=== PATIENT | male | born 1995 | race Caucasian/White ===

== ENCOUNTER 2019-04-12 17:59 | Inpatient (IN) | payer BC ==
[~2019-04-12] VITALS: Ht 167.6 cm; Wt 70.4 kg
[2019-04-12 18:16] VITALS: Ht 167.6 cm; Wt 70.4 kg
--- NOTE | 2019-04-12 19:50 | NUR ---
PT PRESENTED TO ED FOR INTERMITTENT DIZZINESS, "LIGHT-HEADEDNESS", NAUSEA, "MY BLOOD PRESSURE IS HIGH", AND "WHEN I WALK I FEEL UNBALANCED" X 1 DAY. PT DENIES ANY CP, SOB, SYNCOPE, ABDOMINAL PAIN, VOMITING, DAIRRHEA, OR FEVERS. PER PT FAMILY "WE TOOK HIM TO URGENT CARE AND THEY SAID THEY WANTED TO TRANSFER HIM TO HERE BY AMBULANCE BUT HE DIDNT WANT TO SO WE CAME HERE". PT DENIES CURRENT DIZZINESS BUT STATES "IM STILL LIGHTHEADED AND NAUSEOUS". PT AMBULATES WITH STEADY GAIT, PUPILS ARE EQUAL, ROUND, AND REACTIVE TO LIGHT. NO NEURO DEFICITS NOTED. BREATHING EVEN AND UNLABORED. PT SPEAKING FULL CLEAR SENTENCES. FAMILY AT BEDSIDE. WILL CONTINUE TO MONITOR.
--- NOTE | 2019-04-12 20:52 | NUR ---
PT SITTING UP IN GURNEY, AWAKE, SPEAKING IN FULL CLEAR SENTENCES, AAOX4, RESP E/U, AMBULATORY WITH STEADY GAIT UPON ARRIVAL TO ROOM. MOVING ALL EXTREMITIES APPROPRIATELY. NAD NOTED.
[2019-04-12 20:55] LABS: BASOPHIL % 0.6 % (0-2); PLATELET COUNT 302 x10^3mcL (130-400); RED CELL DISTRIBUTION WIDTH 14.3 % (11.5-14.5)
[2019-04-12 20:56] LABS: CALCIUM 9.2 mg/dL (8.5-10.1); CARBON DIOXIDE 31.4 mmol/L (21-32); CHLORIDE SERUM 101 mmol/L (98-107); CREATININE SERUM 0.9 mg/dL (0.7-1.3); GFR1 > 60 mL/min; GLUCOSE SERUM 104 mg/dL (74-106); POTASSIUM SERUM 4.4 mmol/L (3.5-5.1); SODIUM SERUM 139 mmol/L (136-145)
[2019-04-12 21:01] LABS: ALBUMIN 4.4 g/dL (3.4-5.0); ALKALINE PHOSPHATASE 65 U/L (46-116); ALT/SGPT 40 U/L (16-63); AST/SGOT 18 U/L (15-37); BILIRUBIN TOTAL 0.27 mg/dL (0.20-1.00); CHOLESTEROL 145 mg/dL (<200)
[2019-04-12 21:02] LABS: HDL CHOLESTEROL 34 mg/dL (40-60); TOTAL PROTEIN, SERUM 8.5 g/dL (6.4-8.2)
--- NOTE | 2019-04-12 21:22 | NUR ---
TELE NEURO MONITOR PLACED AT BEDSIDE.
--- NOTE | 2019-04-12 21:49 | NUR ---
PT MEDICATED PER MD ORDER. PT VERBALIZED, IN FULL CLEAR SENTENCES, UNDERSTANDING OF THE MEDICATION PRIOR TO ADMINISTRATION.
[2019-04-12 22:12] LABS: AMPHETAMINE QUAL UR NONE DETECTED (See below)
--- NOTE | 2019-04-12 22:14 | NUR ---
PT REQUESTING TO EAT TACOS BROUGHT TO HIM. PER DR. MARTINES, OKAY FOR PT TO EAT TACOS.
[2019-04-12 22:20] LABS: microscopic required? NO
--- NOTE | 2019-04-12 22:26 | NUR ---
PT IS AWAKE, SPEAKING IN FULL CLEAR SENTENCES, SMILING, MOVING ALL EXTREMITIES APPROPRIATELY, ANSWERING QUESTIONS APPROPRIATELY, AAOX4, RESP E/U, NAD NOTED. RESIDENTS AT BEDSIDE.
[2019-04-12 22:28] LABS: urine erythrocyte NEGATIVE (NEGATIVE)
--- NOTE | 2019-04-12 22:33 | NUR ---
REPORT CALLED TO MELODY ERAZO TO ASSUME CARE OF PT.
--- NOTE | 2019-04-12 22:48 | NUR ---
RECEIVED PT FROM ED VIA [facility], CAME IN DUE TO DIZZINESS (ROOM WAS SPINNING) THAT STARTED THIS AM. AAOX4. C/O MILD LIGHTHEADEDNESS. ABLE TO FOLLOW COMMANDS. SPEECH IS CLEAR. NO FACIAL DROOP/ARM DRIFT. NO SOB NOTED, LUNG SOUNDS CTA, O2 SAT=97%, RA. DENIES CHEST PAIN/PRESSURE, SR ON THE MONITOR. DENIES ABDOMINAL DISCOMFORT. LAST BM=04/11/19. VOIDS. IV SITE PATENT AND INTACT. SIDE RAILS UPX2. CALL LIGHT ON REACH. AT BEDSIDE. PRIMARY NURSE [place] AT BEDSIDE FOR CONTINUITY OF CARE
[2019-04-12 22:59] VITALS: BP 127/79
--- NOTE | 2019-04-13 00:55 | NUR ---
Pt. curerntly resting in bed at this time, with family at bedside. Pt. currently asleep but easily arousable with verbal stimuli. Pt. has been started on IV fluids as ordered, IV site patent on the L AC. Pt. has no questions or concerns at this time. Pt. has no c/o of pain, dizziness, SOB, chest pain, or s/o distress at this time. Will continue to monitor pt.
--- NOTE | 2019-04-13 06:00 | NUR ---
Pt. currently asleep in bed with family at bedside. Pt. has had no episodes of feeling dizzy all night long. Just a continued feeling of lightheadedness. Educated pt. on when and how to use call light system throughout shift, pt. verbalized understandint. pt. has no c/o of pain, SOB, or chest pain. Pt did not void or use the restroom but did eat a regular diet upon admission here to the floor when MD. cleared him for the regular diet / outside food. Pt. has a scheduled ECHO for the AM at this time. Pt. IV on LAC patent w/ NS running at 100cc/min at this time. Will continue to monitor pt. until end of shift and endorse to next shift RN.
[2019-04-13 06:18] VITALS: BP 125/68
--- NOTE | 2019-04-13 06:27 | NUR ---
DONAL drain empied at this time, 40 mL of dark green liquid drained out. Pt. tolerated the procedure w/o c/o of pain. Pt. c/o of 4/10 headache at this time, will medicate as ordered with tylenol. Will continue to monitor pt.
[2019-04-13 06:30] LABS: BASOPHIL % 0.6 % (0-2); PLATELET COUNT 265 x10^3mcL (130-400); RED CELL DISTRIBUTION WIDTH 13.9 % (11.5-14.5)
[2019-04-13 06:57] LABS: CALCIUM 8.8 mg/dL (8.5-10.1); CARBON DIOXIDE 29.3 mmol/L (21-32); CHLORIDE SERUM 103 mmol/L (98-107); GFR1 > 60 mL/min; GLUCOSE SERUM 94 mg/dL (74-106); MAGNESIUM 2.2 mg/dL (1.8-2.4); PHOSPHOROUS 4.7 mg/dL (2.5-4.9); POTASSIUM SERUM 4.8 mmol/L (3.5-5.1); SODIUM SERUM 139 mmol/L (136-145)
--- NOTE | 2019-04-13 07:30 | NUR ---
RECEIVED PT IN BED WITH AT BEDSIDE. PT A/A/OX4 DENIES FISHER, DIZZINESS OR LIGHTHEADEDNESS AT THIS TIME. REPORTED ADMITTING SYMTOMS HAVE SUBSIDED. RESP EVEN AND UNLABORED WITH CLEAR BS BILAT. DENIES ANY SOB/CP/PRESSURE AT THIS TIME. NST ON TELE. NO EDEMA NOTED WITH IVF TO LAC. ABD SOFT, NONTENDER WITH ACTIVE BS X4. DENIES ANY N/V AT THIS TIME. AMBULATORY AND VOIDING FREELY. CALL LIGHT IN REACH WITH FAMILY AT BEDSIDE.
[2019-04-13 08:13] VITALS: BP 125/70
--- NOTE | 2019-04-13 08:30 | NUR ---
INQUIRE WITH PT IF HE FELT ANY FURTHER DIZZINESS THAT HE HAD PRN MEDICAITON FOR IT. PT VERBALIZED HE FELT GREAT AND DID NOT NEED IT AT THIS TIME.
[2019-04-13 12:04] VITALS: BP 136/77
--- NOTE | 2019-04-13 14:10 | NUR ---
PT RESTING AT THIS TIME. DENIES ANY DISCOMFORT. NO FURTHER EPISODES OF DIZZINESS OR WEAKNESS. REPORTED STATED HE FEELS BACK TO NORMAL. CALL LIGHT IN REACH NEEDS ATTENDED TO.
[2019-04-13 16:18] VITALS: BP 132/72
--- NOTE | 2019-04-13 18:25 | NUR ---
PT RESTING AT THIS TIME. DENIES ANY DISCOMFORT. FAMILY REMAINS AT BEDSIDE. AWARE POSSIBLE D/C HOME PLAN TOMORROW. CALL LIGHT IN REACH NEEDS ATTENDED TO.
--- NOTE | 2019-04-13 19:30 | NUR ---
PT IS A/O x4. DENIES ANY FISHER OR DIZZINESS. ON TELE #9, NSR. DENIES ANY CHEST PAIN OR PRESSURE. PULSES ARE PRESENT. NO EDEMA NOTED. LUNGS CLEAR IN ALL GRADY. ON RA, DENIES ANY SOB. EQAUL CHEST RISE AND FALL. NO SIGN OF RESP DISTRESS. BOWEL SOUNDS PRESENT X4. SKIN WARM AND INTACT. DENIES ANY PAIN AT THIS TIME. IV ON LAC INTACT AND PATENT. NO SIGN OF INFILTRATION OR IRRITATION NOTED. IS AT BEDSIDE. BED IS AT LOWEST SETTING. CALL LIGHT WITHIN REACH. WILL CONTINUE TO MONTIOR.
[2019-04-13 19:48] VITALS: BP 122/76
--- NOTE | 2019-04-14 00:24 | NUR ---
PT IS RESTING IN BED WITH BOTH EYES CLOSED. BREATHING EVEN AND UNLABORED. NO SIGN OF DISTRESS NOTED. IV INTACT AND PATENT. AT BEDSIDE. BED IS AT LOWEST SETTING. CALL LIGHT WITHIN REACH. WILL CONTINUE TO MONITOR.
[2019-04-14 05:05] VITALS: BP 104/74
--- NOTE | 2019-04-14 06:25 | NUR ---
PT IS RESTING IN THE CHAIR. DENIES ANY DIZZINESS OR FISHER. NO ACUTE EVENT OCCURED AT NIGHT. AT BEDSIDE ALL NIGHT. CALL LIGHT WITHIN REACH. WILL ENDORSE TO AM NURSE.
[2019-04-14 06:44] LABS: BASOPHIL % 0.8 % (0-2); PLATELET COUNT 269 x10^3mcL (130-400)
[2019-04-14 06:48] LABS: CALCIUM 8.8 mg/dL (8.5-10.1); CARBON DIOXIDE 27.3 mmol/L (21-32); CHLORIDE SERUM 104 mmol/L (98-107); CREATININE SERUM 0.9 mg/dL (0.7-1.3); GFR1 > 60 mL/min; GLUCOSE SERUM 87 mg/dL (74-106); POTASSIUM SERUM 4.7 mmol/L (3.5-5.1); SODIUM SERUM 140 mmol/L (136-145)
--- NOTE | 2019-04-14 07:00 | NUR ---
RECEIVED REPORT FROM BERNA RN AT BEDSIDE, PT IN BED IN NO ACUTE DISTRESS
--- NOTE | 2019-04-14 07:30 | NUR ---
PT RESTING IN BED, IN NO ACUTE DISTRESS, VERBAL, ABLE TO MAKE NEEDS KNOWN, CALM AND COOPERATIVE AT THIS TIME, REG DIET, PERRLA, NO REDNESS/DRAINAGE, NO FACIAL DROOP/SLURRED SPEECH, RESP EVEN AND NONLABORED, RA, NO SOB/COUGH, CHEST RISE SYMMETRICALLY, TELE #9, NSR, [id number], DENIED CP/PALPITATION, DENIED N/V/D, DENIED FISHER/PAIN, ABD FLAT AND NONTENDER TO TOUCH, BS ACTIVE, X 4, EQUAL HAND TEMPERATURE INSPECTOR, PALP PULSES, CAP REFILL < 2S, AMBULATORY, CONTINENT, SKIN C/D/W, SEE SKIN ASSESSMENT, IV PATENT AND INFUSING WELL, DRESSING CDI, ALL NEEDS ADDRESSED AT THIS TIME, SAFETY PROTOCOL FOLLOWED, CONTINUE TO MONITOR
[2019-04-14 07:59] VITALS: BP 134/73
[2019-04-14 08:21] VITALS: BP 137/82
--- NOTE | 2019-04-14 08:43 | NUR ---
PT REQUESTED HOSPITALIZATION LETTER FOR WORKPLACE NOTIFICATION, LETTER PROVIDED, NO FURTHER CONCERN NEEDS AT THIS TIME, PT MADE AWARE OF POSSIBLE DC HOME AFTER 12PM, VERBALLY UNDERSTANDING, AT BEDSIDE, PT IN NO ACUTE DISTRESS, ALL NEEDS ADDRESSED, IV INFUSING WELL, CONTINUE TO MONITOR
--- NOTE | 2019-04-14 11:46 | NUR ---
DC PAPER SIGNED AND KEPT IN CHART, EDUCATED PT R/T ALCOHOL INTOXICATION, VERBALLY UNDERSTANDING, IV REMOVED, IV CATH TIP INTACT, NO ACTIVE BLEEDING NOTED, PT MADE AWARE OF F/U WITH PCP AFTER 3-4 DAYS AFTER DC AND IT'S HIS RESPONSIBILITY TO F/U W/ PCP, QUESTION ASKED AND ANSWERED, NO FURTHER CONCERN NEEDED WHEN ASKED AT THIS TIME, MOTHER AT BEDSIDE WILL DRIVE PT HOME, PT REQUESTED DR SIU FOR MD NOTE THAT PT CAN GO BACK TO WORK TOMORROW, DR SIU MADE AWARE AND SAID WILL PROVIDE PAPER AFTER MORNING ROUND, TELE REMOVED AND RETURNED TO [facility], PT SITTING IN BED IN NO ACUTE DISTRESS, PT WILL BE ASSISTED TO LOBBY BY NURSING STAFFS VIA WC WHEN DC HOME.
[2019-04-14] MEDS ORDERED: THI100 PO (13:25)
[2019-04-14] MEDS ORDERED: ESSENTIAL DAIL1 EACH PO (13:25)
[2019-04-14] MEDS ORDERED: PHARMASSURE FO0.4 MG PO (13:25)
== END 2019-04-14 13:30 | disposition home or self-care (01) | DRG 74 ==
LOC: ED 17:59 → DU 22:14
PROVIDERS: Emergency Medicine; Internal Medicine; ADMIT General Practice
DX: G90.8 Other disorders of autonomic nervous system (principal); E86.0 Dehydration; Z60.2 Problems related to living alone; F12.90 Cannabis use, unspecified, uncomplicated; Z91.013 Allergy to seafood; Z72.89 Other problems related to lifestyle
CPT/HCPCS: G0378; J3490; J7030; J8597; Q0092